=== PATIENT | female | born 1940 | race African-American/Black ===

== ENCOUNTER 2017-02-09 09:39 | Emergency (ER) | payer MEDICARE ==
[~2017-02-09] VITALS: Ht 160 cm; Wt 68.0 kg
[2017-02-09 10:55] LABS: BASOPHILS % 0.6 % (0.0-2.0); EOSINOPHILS % 0.1 % (0.0-5.0); HEMATOCRIT. 44.3 % (36.0-48.0); HEMOGLOBIN. 14.8 g/dL (12.0-16.0); LYMPHOCYTES % 9.1 % (20.0-50.0); MEAN CORPUSCULAR HEMOGLOBIN 27.5 pg (28.0-32.0); MEAN CORPUSCULAR VOLUME 82.4 fL (81.0-99.0); MEAN PLATELET VOLUME 7.8 fl (7.4-10.4); MONOCYTES % 2.6 % (2.0-8.0); NEUTROPHILS % 87.6 % (40.0-76.0); PLATELET 239 x1000/uL (130-400); RED BLOOD CELL COUNT 5.38 mill/uL (4.2-5.4); RED CELL DISTRIBUTION WIDTH 13.6 % (11.6-14.6)
[2017-02-09 11:02] LABS: CHLORIDE 100 mEq/L (98-107)
[2017-02-09 11:03] LABS: PROTHROMBIN TIME 10.7 sec (9.4-11.6)
[2017-02-09 11:11] LABS: CARBON DIOXIDE 27 mEq/L (21-32)
[2017-02-09 11:55] VITALS: BP 167/78
== END 2017-02-09 12:40 | disposition home or self-care (01) ==
LOC: ER 10:46
DX: R42 Dizziness and giddiness (principal); R11.10 Vomiting, unspecified; I10 Essential (primary) hypertension; E78.00 Pure hypercholesterolemia, unspecified; Z88.5 Allergy status to narcotic agent; Z79.82 Long term (current) use of aspirin
CPT/HCPCS: 36415; 70450; 71010; 80053; 85025; 85610; 93005; 99285